=== PATIENT | male | born 1995 ===

== ENCOUNTER → 2018-08-16 | Outpatient (REF) ==
[2018-08-16 16:17] LABS: LACTATE DEHYDROGENASE 296 U/L (313-618)
[2018-08-16 16:18] LABS: C-REACTIVE PROTEIN < 0.5 mg/dL (0.0-0.9)
== END ==
LOC: ZLAB.WCH 16:00
PROVIDERS: Internal Medicine
DX: Z01.89 Encounter for other specified special examinations (principal)

== ENCOUNTER → 2018-11-04 | Outpatient (REF) ==
[2018-11-04 20:50] LABS: THYROID STIMULATING HORMONE 2.06 uIU/mL (0.465-4.680)
== END ==
LOC: ZLAB.WCH 20:01
PROVIDERS: Internal Medicine
DX: Z01.89 Encounter for other specified special examinations (principal)